=== PATIENT | female | born 1990 | race Caucasian/White ===

== ENCOUNTER 2022-09-05 16:28 | Emergency (ER) | payer OTHER ==
--- NOTE | 2022-09-05 16:31 | ERPHSYRPT ---
- History of Present Illness Time Seen by Provider: 09/05/22 16:31 Historian: patient Exam Limitations: no limitations Physician History: This is a 32-year-old white female who presents with 3-day history of intermittent left lower quadrant abdominal pain with radiation to the left flank. She has had this pain in the past over at least a year and has not been able to obtain a diagnosis. This 3-day episode has been worse than the other episodes. She is had no nausea vomiting or diarrhea. Timing/Duration: day(s) (3) Abdominal Pain Onset Location: LLQ Pain Radiation: flank (Left) Severity of Pain-Max: moderate Severity of Pain-Current: mild (To moderate) Modifying Factors: Improves With: nothing Associated Symptoms: denies symptoms Previous symptoms: same symptoms as today, no recent treatment Allergies/Adverse Reactions: No Known Drug Allergies Allergy (Verified 09/05/22 16:44) Home Medications: No Reportable Medications [No Reported Medications] 09/05/22 [History] Travel Risk - International Travel Have you traveled outside of the country in past 3 weeks: No - Coronavirus Screening Are you exhibiting any of the following symptoms?: No Close contact with a COVID-19 positive Pt in past 14-21 Days: No - Review of Systems Constitutional: No Symptoms Eyes: No Symptoms Ears, Nose, & Throat: No Symptoms Respiratory: No Symptoms Cardiac: No Symptoms Abdominal/Gastrointestinal: Abdominal Pain Genitourinary Symptoms: Flank Pain (Left lower quadrant) Musculoskeletal: No Symptoms ( left) Skin: No Symptoms Neurological: No Symptoms Psychological: No Symptoms Endocrine: No Symptoms Hematologic/Lymphatic: No Symptoms Immunological/Allergic: No Symptoms All Other Systems: Reviewed and Negative - Past Medical History Pertinent Past Medical History: Yes - Past Surgical History Past Surgical History: Yes - Nursing Vital Signs Nursing Vital Signs: Initial Vital Signs Temperature 97.8 F 09/05/22 16:45 Pulse Rate 65 09/05/22 16:45 Respiratory Rate 17 09/05/22 16:45 Blood Pressure 132/54 09/05/22 16:45 O2 Sat by Pulse Oximetry 98 09/05/22 16:45 Pain Scale Pain Intensity 3 - Physical Exam General Appearance: no apparent distress, alert, anxiety Eye Exam: PERRL/EOMI, eyes nml inspection Ears, Nose, Throat Exam: normal ENT inspection, moist mucous membranes Neck Exam: normal inspection, non-tender, supple, full range of motion Respiratory Exam: normal breath sounds, lungs clear, airway intact, No chest tenderness, No respiratory distress Cardiovascular Exam: regular rate/rhythm, normal heart sounds, normal peripheral pulses Gastrointestinal/Abdomen Exam: soft, normal bowel sounds, tenderness (Left lower quadrant), guarding (Left lower quadrant) Pelvic Exam: not done Rectal Exam: not done Extremity Exam: normal inspection, normal range of motion, pelvis stable Neurologic Exam: alert, oriented x 3, cooperative, 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 tested, normal mood/affect, nml cerebellar function, nml station & gait, sensation nml Skin Exam: normal color, warm, dry Lymphatic Exam: No adenopathy SpO2 Interpretation: normal O2 Delivery: Room Air Ordered Tests: Active Orders 24 hr Category Date Time Status IV Insertion STAT Care 09/05/22 17:26 Active ABDOMEN AND PELVIS W/0 CONTRAS [CT] Stat Exams 09/05/22 17:26 Taken AMYLASE Stat Lab 09/05/22 17:48 Completed CBC W DIFF Stat Lab 09/05/22 17:48 Completed CMP Stat Lab 09/05/22 17:48 Completed LIPASE Stat Lab 09/05/22 17:48 Completed UA W/RFX CULTURE Stat Lab 09/05/22 17:40 Completed Medication Summary Discontinued Medications Generic Name Dose Route Start Last Admin Trade Name Marbinq PRN Reason Stop Dose Admin Sodium Chloride 1,000 mls @ 999 mls/hr 09/05/22 17:26 09/05/22 17:58 Sodium Chloride 0.9% 1000 Ml IV 09/05/22 18:26 999 mls/hr .Q1H1M STA Administration Sodium Chloride Confirm 09/05/22 17:56 Sodium Chloride 0.9% 1000 Ml Administered 09/05/22 17:57 Dose 1,000 mls @ ud .ROUTE .STK-MED ONE Ketorolac Tromethamine 30 mg 09/05/22 17:26 09/05/22 18:02 Ketorolac Tromethamine 30 Mg/Ml Inj IV 09/05/22 17:27 30 mg STAT ONE Administration Ketorolac Tromethamine Confirm 09/05/22 17:56 Ketorolac Tromethamine 30 Mg/Ml Inj Administered 09/05/22 17:57 Dose 30 mg .ROUTE .STK-MED ONE Ondansetron HCl 4 mg 09/05/22 17:26 09/05/22 17:59 Ondansetron Hcl 4 Mg/2 Ml Vial IV 09/05/22 17:27 4 mg STAT ONE Administration Ondansetron HCl Confirm 09/05/22 17:56 Ondansetron Hcl 4 Mg/2 Ml Vial Administered 09/05/22 17:57 Dose 4 mg .ROUTE .STK-MED ONE Lab/Rad Data: Laboratory Result Diagrams 09/05/22 17:48 09/05/22 17:48 Laboratory Results 09/05/22 09/05/22 09/05/22 Range/Units 17:48 17:48 17:40 WBC 8.1 (4.0-10.5) x10^3/uL RBC 3.96 L (4.1-5.4) x10^6/uL Hgb 12.2 (12.0-16.0) g/dL Hct 36.6 (35-47) % MCV 92.4 (78-100) fL MCH 30.8 (26-32) pg MCHC 33.3 (32-36) g/dL RDW 12.1 (11.5-14.0) % Plt Count 226 (150-450) x10^3/uL MPV 11.3 H (7.5-11.0) fL Gran % 61.4 (36.0-66.0) % Immature Gran % (Auto) 0.4 (0.00-0.4) % Nucleat RBC Rel Count 0.0 (0.00-0.1) % Eos # (Auto) 0.07 (0-0.5) x10^3/uL Immature Gran # (Auto) 0.03 (0.00-0.03) x10^3u/L Absolute Lymphs (auto) 2.53 (1.0-4.6) x10^3/uL Absolute Monos (auto) 0.46 (0.0-1.3) x10^3/uL Absolute Nucleated RBC 0.00 (0.00-0.01) x10^3u/L Lymphocytes % 31.4 (24.0-44.0) % Monocytes % 5.7 (0.0-12.0) % Eosinophils % 0.9 (0.00-5.0) % Basophils % 0.2 (0.0-0.4) % Absolute Granulocytes 4.95 (1.4-6.9) x10^3/uL Basophils # 0.02 (0-0.4) x10^3/uL Sodium 138 (137-145) mmol/L Potassium 4.3 (3.5-5.1) mmol/L Chloride 106 (98-107) mmol/L Carbon Dioxide 28 (22-30) mmol/L Anion Gap 8.1 (5-15) MEQ/L BUN 22 H (7-17) mg/dL Creatinine 0.70 (0.52-1.04) mg/dL Estimated GFR > 60.0 ML/MIN Glucose 84 (74-106) mg/dL Calcium 8.8 (8.4-10.2) mg/dL Total Bilirubin 0.60 (0.2-1.3) mg/dL AST 36 (14-36) U/L ALT 22 (0-35) U/L Alkaline Phosphatase 55 (38-126) U/L Serum Total Protein 6.9 (6.3-8.2) g/dL Albumin 4.1 (3.5-5.0) g/dL Amylase 70 (30-110) U/L Lipase 52 (23-300) U/L Urinalys Dipstick Clnc MAIN LAB Urine Color YELLOW (YELLOW) Urine Appearance CLEAR (CLEAR) Urine pH 7.0 (5-6) Ur Specific [place] >=1.030 (1.005-1.025) POC Urine Protein Conf NEGATIVE (Negative) Urine Ketones TRACE (NEGATIVE) Urine Nitrite NEGATIVE (NEGATIVE) Urine Bilirubin NEGATIVE (NEGATIVE) Urine Urobilinogen 2 (0-1) mg/dL Urine Leukocytes NEGATIVE (NEGATIVE) Urine WBC (Auto) NONE (0-5) /HPF Urine RBC (Auto) NONE (0-2) /HPF U Epithel Cells (Auto) RARE (FEW) /HPF Urine Bacteria (Auto) NONE (NEGATIVE) /HPF Urine RBC NEGATIVE (0-5) Walter/ul Urine Mucus (Auto) SLIGHT (NEGATIVE) /HPF Ur Culture Indicated? NO Urine Glucose NEGATIVE (NEGATIVE) mg/dL - Progress Progress Note: 09/05/22 19:37 CAT scan of the abdomen pelvis without contrast shows no acute intra-abdominal or intrapelvic. 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 Add ibuprofen 600 milligrams orally with food 3 times a day. Take medication as prescribed. Follow-up with your primary care physician for further evaluation and management
[2022-09-05] MEDS ORDERED: Zofran 4 MG/2 ML VIAL IV ONE (17:26)
[2022-09-05] MEDS ORDERED: Sodium Chloride 0.9% 1000 ML 1,000 ML IV STA (17:26)
[2022-09-05] MEDS ORDERED: TORAdol 30 mg Injection IV ONE (17:26)
[2022-09-05 17:53] LABS: Appearance CLEAR (CLEAR); Bilirubin NEGATIVE (NEGATIVE); Dipstick done @ ? MAIN LAB; Glucose NEGATIVE (NEGATIVE); Ketones TRACE (NEGATIVE); Nitrite NEGATIVE (NEGATIVE); Protein,Urine Dip NEGATIVE (Negative); RBC NEGATIVE Ery/ul (0-5); Specific Gravity >=1.030 (1.005-1.025); Urobilinogen 2 mg/dL (0-1)
[2022-09-05 17:55] LABS: Epithelial Cells RARE /HPF (FEW); Mucus SLIGHT /HPF (NEGATIVE)
[2022-09-05 17:56] LABS: Urine Cultured Indicated? NO
[2022-09-05] MEDS ORDERED: Sodium Chloride 0.9% 1000 ML 1,000 ML ONE (17:56)
[2022-09-05] MEDS ORDERED: Zofran 4 MG/2 ML VIAL ONE (17:56)
[2022-09-05] MEDS ORDERED: TORAdol 30 mg Injection ONE (17:56)
[2022-09-05 17:57] LABS: Absolute Neutrophil Ct (ANC) 4.95 x10^3/uL (1.4-6.9); Basophil (Absolute #) 0.02 x10^3/uL (0-0.4); Eosinophil % 0.9 % (0.00-5.0); Eosinophil (Absolute #) 0.07 x10^3/uL (0-0.5); Hematocrit 36.6 % (35-47); Hemoglobin 12.2 g/dL (12.0-16.0); Lymphocyte (Absolute #) 2.53 x10^3/uL (1.0-4.6); Lymphocytes % 31.4 % (24.0-44.0); Mean Cell Volume 92.4 fL (78-100); Mean Corpuscular Hemoglobin 30.8 pg (26-32); Mean Corpuscular Hgb Concent. 33.3 g/dL (32-36); Mean Platelet Volume 11.3 fL (7.5-11.0); Monocyte (Absolute #) 0.46 x10^3/uL (0.0-1.3); Monocytes % 5.7 % (0.0-12.0); Neutrophil % 61.4 % (36.0-66.0); Platelet Count 226 x10^3/uL (150-450); Red Blood Count 3.96 x10^6/uL (4.1-5.4); Red Cell Distribution Width 12.1 % (11.5-14.0); White Blood Count 8.1 x10^3/uL (4.0-10.5)
[2022-09-05 18:09] LABS: ALBUMIN 4.1 g/dL (3.5-5.0); ALKALINE PHOSPHATASE 55 U/L (38-126); AMYLASE 70 U/L (30-110); ANION GAP 8.1 MEQ/L (5-15); BLOOD UREA NITROGEN 22 mg/dL (7-17); CHLORIDE 106 mmol/L (98-107); Calcium 8.8 mg/dL (8.4-10.2); Carbon Dioxide 28 mmol/L (22-30); EST GLOMERULAR FILTRATION RATE > 60.0 ML/MIN; Glucose 84 mg/dL (74-106); LIPASE 52 U/L (23-300); Potassium 4.3 mmol/L (3.5-5.1); SGOT/AST 36 U/L (14-36); SGPT/ALT 22 U/L (0-35); SODIUM 138 mmol/L (137-145); Total Protein 6.9 g/dL (6.3-8.2)
[2022-09-05 18:48] VITALS: BP 111/72
[2022-09-05 19:25] VITALS: PULSE 62; O2SAT 99
[2022-09-05] MEDS ORDERED: NORCO 5/325 MG PO ONE (19:39)
[2022-09-05] MEDS ORDERED: NORCO 5/325 MG ONE (19:46)
--- NOTE | 2022-09-06 08:36 | XRAY ---
Indication: Left lower quadrant/flank pain. History kidney stone. Multiple contiguous axial images obtained through the abdomen and pelvis without contrast. Comparison: None Lung bases clear of infiltrate and effusion. Minimal bibasilar dependent atelectasis. Heart not enlarged. Noncontrasted stomach and bowel loops appear nonobstructed with normal appendix. No free fluid/air. Remaining liver, gallbladder, pancreas, spleen, adrenal glands, kidneys, ureters, bladder, uterus, and aorta are unremarkable for noncontrast exam. Osseous structures intact with incidental bilateral L5 spondylolysis with minimal 1 mm anterolisthesis. Impression: 1. Bilateral L5 spondylolysis with minimal grade [address] abdomen/pelvis without contrast exam is negative.
== END 2022-09-05 19:57 | disposition home or self-care (01) ==
LOC: ED 16:28
DX: R10.32 Left lower quadrant pain (principal)
CPT/HCPCS: 36000; 36415; 74176; 80053; 81015; 82150; 83690; 85025; 96374; 96375; 99284; J1885; J2405; A9270-GY